=== PATIENT | female | born 1970 | race Hispanic/Latino ===

== ENCOUNTER 2016-10-19 00:42 | Emergency (ER) | payer SELFPAY ==
[~2016-10-19] VITALS: Ht 152.4 cm; Wt 58.1 kg
[~2016-10-19 00:42] MED LIST: ACHD5005 PO; AMIT10TA6 PO; NAPR1TAB21 PO
--- OUTSIDE RECORDS SUMMARY | 2016-10-19 00:49 | XMS REPORT ---
Author Author FRANCINE ALBERTS Organization [employer] Address Unknown Phone Unavailable Care Team Providers Care Fly Worker Name Role Phone FRANCINE ALBERTS CP Unavailable Allergies, Adverse Reactions, Alerts Substance Reaction Event Type Ultram 50 Mg Tablet nervousness Non Drug Allergy Problems Problem Type Condition Code Onset Dates Condition Status Assessment Acute pain of left knee M25.562 Active Assessment Gastroesophageal reflux disease without esophagitis K21.9 Active Problem Dysthymic disorder 300.4 Active Assessment Insomnia, unspecified type G47.00 Active Medications Medication Code System Code Instructions Start Date End Date Status Dosage Naproxen [facility] 70813041264 500 MG TAKE ONE TABLET BY MOUTH TWICE DAILY WITH FOOD Omeprazole [facility] [address]-59 20 mg TAKE ONE CAPSULE BY MOUTH TWICE DAILY BEFORE A MEAL PredniSONE [facility] [address]-56 20 mg Orally Once a day May 20, 2016May 1 tablet Amitriptyline HCl [facility] [address]-10 25 MG Orally Once a day Mar 28, 2015 1 tablet at bedtime Procedures Procedure Coding System Code Date Office Visit, Est Pt., Level 3 CPT-4 90643 May 20, 2016 Vital Signs Date/Time: May 20, 2016 Cardiac Monitoring Heart Rate 80 bpm Weight 134.6 lbs Height 60 in BMI 26.28 Index Blood Pressure Diastolic 72 mmHg Blood Pressure Systolic 104 mmHg Results No Known Results Summary Purpose [employer] Submission
--- NOTE | 2016-10-19 00:52 | ED GU-Female ---
General Stated Complaint: UTI Source: patient, RN notes reviewed Exam Limitations: no limitations History of Present Illness Time seen by provider: 00:52 Initial Comments Burning c/ urination since Thursday, worse today. OTC meds not helping. Timing/Duration: constant, getting worse Severity/Quality: moderate Location: urethral Radiation: none Activities at Onset: none Prior Genitourinary Problems: none Modifying Factors: Worsens With Urinating Associated Symptoms: dysuria urinary frequency Allergies and Home Medications Allergies Coded Allergies: No Known Allergies (Verified Allergy, Unknown, 12/21/05) Home Medications Amitriptyline Hcl 10 Mg Tablet 1-2 EACH PO DAILY (Reported) Cefdinir 300 Mg Capsule #20 300 MG PO BID Prescribed by: JORGE BOSE on 10/19/16121 Hydrocodone Bit/Acetaminophen 1 Each Tablet 1 EACH PO Q3H PRN PRN PAIN (Reported ) Naproxen/Esomeprazole Mag 1 Each Tbmp.12hr 1 EACH PO BID (Reported) Phenazopyridine HCl 200 Mg Tablet 2Days 1 TAB PO TID Prescribed by: JORGE BOSE on 10/19/16121 Constitutional: see HPI Genitourinary: see HPI burning dysuria frequency pain urgency : No All Other Systemes Reviewed Negative Unless Noted: Yes (Negative excepted noted.) Past Fxmheyt-Uuckba-Tcttso Hx Patient Social History Recent Foreign Travel: No Contact w/Someone Who Travel: No Respiratory Hx Respiratory Disorders: No Cardiovascular Hx Cardiac Disorders: No Neurological Hx Neurological Disorders: No Genitourinary Hx Genitourinary Disorders: No Gastrointestinal Hx Gastrointestinal Disorders: No Musculoskeletal Hx Musculoskeletal Disorders: No Endocrine Hx Endocrine Disorders: No HEENT HX ENT Disorders: No Blood Transfusions Hx Blood Disorders: No Physical Exam Vital Signs Capillary Refill : General Appearance: WD/WN mild distress Cardiovascular: regular rate, rhythm Respiratory: no respiratory distress Gastrointestinal: softNo guarding, No rebound, tenderness (suprapubic) Rectal: deferred Back: no CVA tenderness Neurologic/Psychiatric: no motor/sensory deficits alert oriented x 3 Skin: warm/dry Progress/Results/Core Measures Results/Orders Lab Results My Orders Vital Signs/I&O Departure Impression Impression: Primary Impression: Urinary tract infection Disposition: HOME, SELF-CARE Condition: Stable Departure-Patient Inst. Decision time for Depature: 01:20 Referrals: GILMAR MELENDREZ DO (PCP/Family) Primary Care Physician Patient Instructions: Urinary Tract Infection, Adult (DC) Scripts Phenazopyridine HCl (Pyridium)200 Mg Tablet1 Tab PO TID UTI 2 Days Ref 0 Prov:JORGE BOSE DO 10/19/16 Cefdinir 300 Mg [id number] Mg PO BID UTI #20 CAP Ref 0 Prov:JORGE BOSE DO 10/19/16 JORGE BOSE DO Oct 19, 2016 00:52 Urine Protein 2+ H NEGATIVE Urine RBC 25-50 H /HPF Urine RBC (Auto) 5+ H NEGATIVE Urine Specific [place] 1.015 L 1.016-1.022 Urine Squamous Epithelial Cells 5-10 /HPF Urine Urobilinogen 8 H NORMAL MG/DL Urine WBC 10-25 H /HPF Urine pH 5 5-9 My Orders Orders-JORGE BOSE DO Ua Culture If Indicated (10/19/16 00:50) Urine Culture (10/19/16 00:46) Phenazopyridine Tablet (Pyridium Tablet) (10/19/16 01:30) Cefdinir Capsule (Omnicef Capsule) (10/19/16 01:30) Vital Signs/I&O Vital Sign - Last 12Hours 10/19/16 00:45 Temp 96.7 Pulse 79 Resp 20 B/P 142/93 Pulse Ox 99 O2 Delivery Room Air Departure Impression Impression: Primary Impression: Urinary tract infection Disposition: HOME, SELF-CARE Condition: Stable Departure-Patient Inst. Decision time for Depature: 01:20 Referrals: GILMAR MELENDREZ DO (PCP/Family) Primary Care Physician Patient Instructions: Urinary Tract Infection, Adult (DC) Scripts Phenazopyridine HCl (Pyridium)200 Mg Tablet1 Tab PO TID UTI 2 Days Ref 0 Prov:JORGE BOSE DO 10/19/16 Cefdinir 300 Mg [id number] Mg PO BID UTI #20 CAP Ref 0 Prov:JORGE BOSE DO 10/19/16 JORGE BOSE DO Oct 19, 2016 00:52
[2016-10-19 01:05] LABS: KETONES,URINE NEGATIVE (NEGATIVE); LEUKOCYTE ESTERASE ,URINE 2+ (NEGATIVE); NITRITE,URINE POSITIVE (NEGATIVE); PH,URINE 5 (5-9); PROTEIN,URINE 2+ (NEGATIVE); UROBILINOGEN,URINE 8 MG/DL (NORMAL)
[2016-10-19 01:06] LABS: BILIRUBIN,URINE 3+ (NEGATIVE)
[2016-10-19] MEDS ORDERED: PHEN-640 PO (01:22)
[2016-10-19] MEDS ORDERED: CEFD300C3 PO (01:22)
[2016-10-19 01:30] VITALS: BP 0/0
[2016-10-19] MEDS ORDERED: CEFDINIR 300 MG (OMNICEF) CAP PO ONE (01:30)
[2016-10-19] MEDS ORDERED: PHENAZOPYRIDINE 100 MG (PYRIDIUM) TABLET PO ONE (01:30)
== END 2016-10-19 01:30 | disposition home or self-care (01) ==
LOC: EDUNIT# 00:42 → ER 00:45
DX: N39.0 Urinary tract infection, site not specified (principal)
CPT/HCPCS: 81000; 87088; 87186; 99282

== ENCOUNTER 2017-02-15 14:47 | Emergency (ER) | payer SELFPAY ==
[~2017-02-15] VITALS: Ht 152.4 cm; Wt 58.1 kg
[~2017-02-15 14:47] MED LIST changes: +CEFD300C3 PO; +PHEN-640 PO
[2017-02-15 15:23] LABS: BILIRUBIN,URINE NEGATIVE (NEGATIVE); KETONES,URINE NEGATIVE (NEGATIVE); LEUKOCYTE ESTERASE ,URINE 3+ (NEGATIVE); NITRITE,URINE POSITIVE (NEGATIVE); PH,URINE 7 (5-9); PROTEIN,URINE 1+ (NEGATIVE); UROBILINOGEN,URINE NORMAL (NORMAL)
[2017-02-15 15:29] LABS: BASOPHILS % (AUTO) 0 % (0-10); EOSINOPHILS # (AUTO) 0.2 10^3/uL (0.0-0.3); EOSINOPHILS % (AUTO) 3 % (0-10); LYMPHOCYTES # (AUTO) 1.1 X 10^3 (1.0-4.0); LYMPHOCYTES % (AUTO) 20 % (12-44); MEAN CORPUSCULAR HEMOGLOBIN 27 PG (25-34); MEAN CORPUSCULAR HGB CONC 32 G/DL (32-36); MEAN CORPUSCULAR VOLUME 85 FL (80-99); MEAN PLATELET VOLUME 9.7 FL (7.4-10.4); MONOCYTES # (AUTO) 0.3 X 10^3 (0.0-1.0); MONOCYTES % (AUTO) 6 % (0-12); NEUTROPHILS % (AUTO) 71 % (42-75); PLATELET COUNT 278 10^3/uL (130-400); RED BLOOD COUNT 4.32 10^6/uL (4.35-5.85); RED CELL DISTRIBUTION WIDTH 15.4 % (10.0-14.5); WHITE BLOOD COUNT 5.6 10^3/uL (4.3-11.0)
--- NOTE | 2017-02-15 15:30 | ED Abdominal Pain ---
General Stated Complaint: ABD PAIN Source of Information: Patient Exam Limitations: No Limitations History of Present Illness Time Seen By Provider: 15:28 Initial Comments To ER with suprapubic abdominal pain, mild bilateral flank pain, nausea without vomiting, urinary frequency with only dribbling. Symptoms began 2 days ago. Chills but no fever. Timing/Duration: 1-2 Days Severity/Quality: Moderate Location: Suprapubic Radiation: No Radiation Activities at Onset: None Associated Symptoms: Nausea/Vomiting Allergies and Home Medications Allergies Coded Allergies: No Known Allergies (Verified Allergy, Unknown, 12/21/05) Home Medications Amitriptyline Hcl 10 Mg Tablet, 1-2 EACH PO DAILY, (Reported) Cefdinir 300 Mg Capsule, 300 MG PO BID, #20 Ref 0 Prescribed by: JORGE BOSE on 10/19/16121 Hydrocodone Bit/Acetaminophen 1 Each Tablet, 1 EACH PO Q3H PRN for PAIN, ( Reported) Naproxen/Esomeprazole Mag 1 Each Tbmp.12hr, 1 EACH PO BID, (Reported) Phenazopyridine HCl 200 Mg Tablet, 1 TAB PO TID for 2 Days, Ref 0 Prescribed by: JORGE BOSE on 10/19/16121 Review of Systems Constitutional: see HPI, chills EENTM: No Symptoms Reported Respiratory: No Symptoms Reported Cardiovascular: No Symptoms Reported Gastrointestinal: See HPI, Abdominal Pain, Nausea Genitourinary: No Symptoms Reported Musculoskeletal: no symptoms reported Skin: no symptoms reported Psychiatric/Neurological: No Symptoms Reported Endocrine: No Symptoms Reported Past Ixamtav-Amcywl-Capfou Hx Patient Social History Recent Foreign Travel: No Contact w/Someone Who Travel: No Recent Hopitalizations: No Surgeries HX Surgeries: No Respiratory Hx Respiratory Disorders: No Cardiovascular Hx Cardiac Disorders: No Neurological Hx Neurological Disorders: No Genitourinary Hx Genitourinary Disorders: No Gastrointestinal Hx Gastrointestinal Disorders: No Musculoskeletal Hx Musculoskeletal Disorders: No Endocrine Hx Endocrine Disorders: Yes Endocrine Disorders: Lupus HEENT HX ENT Disorders: No Blood Transfusions Hx Blood Disorders: No Physical Exam Vital Signs VS - Last 72 Hours, by Label 02/15/17 15:34 Temp 98.3 Pulse 88 Resp 16 B/P (MAP) 119/84 Pulse Ox 99 O2 Delivery Room Air Capillary Refill : General Appearance: WD/WN, no apparent distress HEENT: PERRL/EOMI, normal ENT inspection Neck: non-tender, full range of motion Respiratory: no respiratory distress, no accessory muscle use Cardiovascular: regular rate, rhythm, no murmur Gastrointestinal: normal bowel sounds, non tender, soft Extremities: normal range of motion, non-tender Neurologic/Psychiatric: alert, normal mood/affect, oriented x 3 Skin: normal color, warm/dry Progress/Results/Core Measures Results/Orders Lab Results Laboratory Tests Test 02/15/17 15:16 02/15/17 15:22 Range/Units Urine Color YELLOW Urine Clarity SLIGHTLY CLOUDY Urine pH 7 5-9 Urine Specific [employer] 1.005 L 1.016-1.022 Urine Protein 1+ H NEGATIVE Urine Glucose (UA) NEGATIVE NEGATIVE Urine Ketones NEGATIVE NEGATIVE Urine Nitrite POSITIVE H NEGATIVE Urine Bilirubin NEGATIVE NEGATIVE Urine Urobilinogen NORMAL NORMAL MG/DL Urine Leukocyte Esterase 3+ H NEGATIVE Urine RBC (Auto) 5+ H NEGATIVE Urine RBC 5-10 H /HPF Urine WBC 50-100 H /HPF Urine Squamous Epithelial Cells NONE /HPF Urine Crystals NONE /LPF Urine Bacteria NEGATIVE /HPF Urine Casts NONE /LPF Urine Mucus NEGATIVE /LPF Urine Culture Indicated YES White Blood Count 5.6 4.3-11.0 10^3/uL Red Blood Count 4.32 L 4.35-5.85 10^6/uL Hemoglobin 11.5 11.5-16.0 G/DL Hematocrit 37 35-52 % Mean Corpuscular Volume 85 80-99 FL Mean Corpuscular Hemoglobin 27 25-34 PG Mean Corpuscular Hemoglobin Concent 32 32-36 G/DL Red Cell Distribution Width 15.4 H 10.0-14.5 % Platelet Count 278 130-400 10^3/uL Mean Platelet Volume 9.7 7.4-10.4 FL Neutrophils (%) (Auto) 71 42-75 % Lymphocytes (%) (Auto) 20 12-44 % Monocytes (%) (Auto) 6 0-12 % Eosinophils (%) (Auto) 3 0-10 % Basophils (%) (Auto) 0 0-10 % Neutrophils # (Auto) 4.0 1.8-7.8 X 10^3 Lymphocytes # (Auto) 1.1 1.0-4.0 X 10^3 Monocytes # (Auto) 0.3 0.0-1.0 X 10^3 Eosinophils # (Auto) 0.2 0.0-0.3 10^3/uL Basophils # (Auto) 0.0 0.0-0.1 10^3/uL My Orders Orders - KAMILLA LUNSFORD APRN Saline Lock/Iv-Start (02/15/17 15:24) Cbc With Automated Diff (02/15/17 15:24) Basic Metabolic Panel (02/15/17 15:24) Rocephin 1 Gm Iv (1 X Dose) (02/15/17 15:45) Vital Signs/I&O Vital Sign - Last 12Hours 02/15/17 15:34 Temp 98.3 Pulse 88 Resp 16 B/P (MAP) 119/84 Pulse Ox 99 O2 Delivery Room Air Departure Impression Impression: Primary Impression: Urinary tract infection Disposition: HOME, SELF-CARE Condition: Stable Departure-Patient Inst. Decision time for Depature: 15:39 Referrals: GILMAR MELENDREZ DO (PCP/Family) Primary Care Physician Patient Instructions: Urinary Tract Infection, Adult (DC) Add. Discharge Instructions: 1. Drink plenty of fluids 2. Return to ER for any concerns 3. See your doctor next week 4. Do not be alarmed medication as your urine a Very dark orangecolor. Scripts Phenazopyridine HCl (Pyridium) 200 Mg Tablet 1 TAB PO TID, #6 TAB Prov: KAMILLA LUNSFORD APRN 02/15/17 Sulfamethoxazole/Trimethoprim (Bactrim Ds Tablet) 1 Each Tablet 1 EACH PO BID, #10 TAB Prov: KAMILLA LUNSFORD APRN 02/15/17 KAMILLA LUNSFORD APRN Feb 15, 2017 15:29
[2017-02-15 15:36] LABS: WBC,URINE 50-100 /HPF
[2017-02-15] MEDS ORDERED: PHEN-640 PO (15:41)
[2017-02-15] MEDS ORDERED: SULF1TAB35 PO (15:41)
[2017-02-15] MEDS ORDERED: cefTRIAXone INJECTION 1,000 MG in NS (IVPB) 50 ML IV ONE (15:45)
[2017-02-15 15:48] LABS: ANION GAP 9 MMOL/L (5-14); BLOOD UREA NITROGEN 11 MG/DL (7-18); BUN/CREATININE RATIO 15 (0-20); CARBON DIOXIDE 24 MMOL/L (21-32); CHLORIDE 106 MMOL/L (98-107); CREATININE SERUM 0.73 MG/DL (0.60-1.30); GFR ESTIMATED > 60; GLUCOSE 85 MG/DL (70-105); HEMOLYSIS 5 (-100-29); ICTERUS 0.6 (-100-1.9); LIPEMIA 4 (-100-49); POTASSIUM 3.5 MMOL/L (3.6-5.0); SODIUM 139 MMOL/L (135-145)
[2017-02-15 16:12] VITALS: BP 128/87
--- OUTSIDE RECORDS SUMMARY | 2017-02-16 18:35 | XMS REPORT ---
Author Author FRANCINE ALBERTS Organization [employer] Address Unknown Phone Unavailable Care Team Providers Care Metallurgist Helper Name Role Phone FRANCINE ALBERTS CP Unavailable [...] Start Date End Date Status Dosage Naproxen [facility] [id number] 500 MG TAKE ONE TABLET BY MOUTH TWICE DAILY WITH FOOD Omeprazole [facility] [address]-66 20 mg TAKE ONE CAPSULE BY MOUTH TWICE DAILY BEFORE A MEAL PredniSONE [facility] [address]-43 20 mg Orally Once a day May 20, 2016May 1 tablet Amitriptyline HCl [facility] [address]-52 25 MG Orally Once a day Mar 28, 2015 1 tablet at bedtime Procedures Procedure Coding System Code Date Office Visit, Est Pt., Level 3 CPT-4 09222 May 20, 2016 Vital Signs Date/Time: May 20, 2016 Cardiac Monitoring Heart Rate 80 bpm Weight 134.6 lbs Height 60 in BMI 26.28 Index Blood Pressure Diastolic 72 mmHg Blood Pressure Systolic 104 mmHg Results No Known Results Summary Purpose [employer] Submission
--- OUTSIDE RECORDS SUMMARY | 2017-02-16 18:36 | XMS REPORT ---
Author Author FRANCINE ALBERTS Organization [employer] Address Unknown Phone Unavailable Care Team Providers Care Corporate Human Resources Manager Name Role Phone FRANCINE ALBERTS CP Unavailable Allergies, Adverse Reactions, Alerts Substance Reaction Event Type Ultram 50 Mg Tablet nervousness Non Drug Allergy Problems Problem Type Condition ICD-9 Code Onset Dates Condition Status Assessment Depression 311 Active Problem Dysthymic disorder 300.4 Active Medications Medication Code System Code Instructions Start Date End Date Status Dosage Amitriptyline HCl [facility] [address]-65 25 MG Orally Once a day Mar 28, 2015 1 tablet at bedtime Elavil NDC 0 25 mg Sep 28, 2014 1 tablet by Oral route 1 time per day at Procedures Procedure Coding System Code Date Office Visit, Est Pt., Level 3 CPT-4 08491 Apr 26, 2015 Vital Signs Date/Time: Apr 26, 2015 Temperature 97.8 F Weight 129.7 lbs Height 60 in BMI 25.33 Index Blood Pressure Diastolic 72 mmHg Blood Pressure Systolic 102 mmHg Cardiac Monitoring Heart Rate 80 bpm Results No Known Results Summary Purpose [employer] Submission
--- OUTSIDE RECORDS SUMMARY | 2017-02-16 18:36 | XMS REPORT | Continuity of Care Document ---
Author Author [facility] of [place] campus Address Unknown Phone Unavailable Allergies Active Description Code Type Severity Reaction Onset Reported/Identified Relationship to Patient Clinical Status Yes NKANo Known Allergies NKA Miscellaneous Allergy Unknown N/ A 12/21/2005 Yes Ultram 50 mg tablet Drug Allergy 05/06/2012 Yes Ultram 50 mg tablet Drug Allergy N/A N/A 05/06/2012 Medications Problems Date Dx Coded Attending Type Code Diagnosis Diagnosed By 09/21/2008 V72.31 Pelvic Exam (internal) 09/21/2008 GILMAR MELENDREZ DO V72.31 Pelvic Exam (internal) 09/21/2008 V72.31 Pelvic Exam (internal) 09/21/2008 GILMAR MELENDREZ DO V72.31 Pelvic Exam (internal) 09/21/2008 V72.31 Pelvic Exam (internal) 09/21/2008 V72.31 Pelvic Exam (internal) 09/21/2008 V72.31 Pelvic Exam (internal) 09/21/2008 V72.31 Pelvic Exam (internal) 09/21/2008 V72.31 Pelvic Exam (internal) 09/21/2008 QIAN CARVER DDS V72.31 Pelvic Exam (internal) 09/21/2008 FRANCINE ALBERTS APRN V72.31 Pelvic Exam (internal) 01/22/2009 616.10 Vaginitis And Vulvovaginitis Unspecified 01/22/2009 GILMAR MELENDREZ DO 616.10 Vaginitis And Vulvovaginitis Unspecified 01/22/2009 616.10 Vaginitis And Vulvovaginitis Unspecified 01/22/2009 GILMAR MELENDREZ DO 616.10 Vaginitis And Vulvovaginitis Unspecified 01/22/2009 616.10 Vaginitis And Vulvovaginitis Unspecified 01/22/2009 616.10 Vaginitis And Vulvovaginitis Unspecified 01/22/2009 616.10 Vaginitis And Vulvovaginitis Unspecified 01/22/2009 616.10 Vaginitis And Vulvovaginitis Unspecified 01/22/2009 616.10 Vaginitis And Vulvovaginitis Unspecified 01/22/2009 QIAN CARVER DDS 616.10 Vaginitis And Vulvovaginitis Unspecified 01/22/2009 FRANCINE ALBERTS APRN 616.10 Vaginitis And Vulvovaginitis Unspecified 09/19/2009 599.0 Urinary Tract Infection, Site Not Specified 09/19/2009 788.1 Dysuria 09/19/2009 GILMAR MELENDREZ DO 599.0 Urinary Tract Infection, Site Not Specified 09/19/2009 GILMAR MELENDREZ DO 788.1 Dysuria 09/19/2009 599.0 Urinary Tract Infection, Site Not Specified 09/19/2009 788.1 Dysuria 09/19/2009 GILMAR MELENDREZ DO 599.0 Urinary Tract Infection, Site Not Specified 09/19/2009 GILMAR MELENDREZ DO 788.1 Dysuria 09/19/2009 599.0 Urinary Tract Infection, Site Not Specified 09/19/2009 788.1 Dysuria 09/19/2009 599.0 Urinary Tract Infection, Site Not Specified 09/19/2009 788.1 Dysuria 09/19/2009 599.0 Urinary Tract Infection, Site Not Specified 09/19/2009 788.1 Dysuria 09/19/2009 599.0 Urinary Tract Infection, Site Not Specified 09/19/2009 788.1 Dysuria 09/19/2009 599.0 Urinary Tract Infection, Site Not Specified 09/19/2009 788.1 Dysuria 09/19/2009 QIAN CARVER DDS 599.0 Urinary Tract Infection, Site Not Specified 09/19/2009 QIAN CARVER DDS 788.1 Dysuria 09/19/2009 FRANCINE ALBERTS APRN 599.0 Urinary Tract Infection, Site Not Specified 09/19/2009 FRANCINE ALBERTS APRN 788.1 Dysuria 09/21/2009 112.1 Candidiasis Vaginal 09/21/2009 V74.5 Visit For: Screening Exam Bact/spirochetal Venereal Disease 09/21/2009 GILMAR MELENDREZ DO 112.1 Candidiasis Vaginal 09/21/2009 GILMAR MELENDREZ DO V74.5 Visit For: Screening Exam Bact/spirochetal Venereal Disease 09/21/2009 112.1 Candidiasis Vaginal 09/21/2009 V74.5 Visit For: Screening Exam Bact/spirochetal Venereal Disease 09/21/2009 GILMAR MELENDREZ DO 112.1 Candidiasis Vaginal 09/21/2009 GILMAR MELENDREZ DO V74.5 Visit For: Screening Exam Bact/spirochetal Venereal Disease 09/21/2009 112.1 Candidiasis Vaginal 09/21/2009 V74.5 Visit For: Screening Exam Bact/spirochetal Venereal Disease 09/21/2009 112.1 Candidiasis Vaginal 09/21/2009 V74.5 Visit For: Screening Exam Bact/spirochetal Venereal Disease 09/21/2009 112.1 Candidiasis Vaginal 09/21/2009 V74.5 Visit For: Screening Exam Bact/spirochetal Venereal Disease 09/21/2009 112.1 Candidiasis Vaginal 09/21/2009 V74.5 Visit For: Screening Exam Bact/spirochetal Venereal Disease 09/21/2009 112.1 Candidiasis Vaginal 09/21/2009 V74.5 Visit For: Screening Exam Bact/spirochetal Venereal Disease 09/21/2009 QIAN CARVER DDS 112.1 Candidiasis Vaginal 09/21/2009 QIAN CARVER DDS V74.5 Visit For: Screening Exam Bact/ spirochetal Venereal Disease 09/21/2009 FRANCINE ALBERTS APRN 112.1 Candidiasis Vaginal 09/21/2009 FRANCINE ALBERTS APRN S V74.5 Visit For: Screening Exam Bact/ spirochetal Venereal Disease 12/14/2009 719.40 ARTHRAIGIA UNSPEC 12/14/2009 783.0 Anorexia 12/14/2009 GILMAR MELENDREZ DO 719.40 ARTHRAIGIA UNSPEC 12/14/2009 GILMAR MELENDREZ DO 783.0 Anorexia 12/14/2009 719.40 ARTHRAIGIA UNSPEC 12/14/2009 783.0 Anorexia 12/14/2009 GILMAR MELENDREZ DO 719.40 ARTHRAIGIA UNSPEC 12/14/2009 GILMAR MELENDREZ DO 783.0 Anorexia 12/14/2009 719.40 ARTHRAIGIA UNSPEC 12/14/2009 783.0 Anorexia 12/14/2009 719.40 ARTHRAIGIA UNSPEC 12/14/2009 783.0 Anorexia 12/14/2009 719.40 ARTHRAIGIA UNSPEC 12/14/2009 783.0 Anorexia 12/14/2009 719.40 ARTHRAIGIA UNSPEC 12/14/2009 783.0 Anorexia 12/14/2009 719.40 ARTHRAIGIA UNSPEC 12/14/2009 783.0 Anorexia 12/14/2009 MEHUL GOMEZSQIAN 719.40 ARTHRAIGIA UNSPEC 12/14/2009 WHITE DDS, QIAN J 783.0 Anorexia 12/14/2009 FRANCINE ALBERTS APRN 719.40 ARTHRAIGIA UNSPEC 12/14/2009 FRANCINE ALBERTS APRN 783.0 Anorexia 12/28/2009 710.0 SYSTEMIC LUPUS ERYTHEMATOSUS 12/28/2009 GILMAR MELENDREZ DO 710.0 SYSTEMIC LUPUS ERYTHEMATOSUS 12/28/2009 710.0 SYSTEMIC LUPUS ERYTHEMATOSUS 12/28/2009 GILMAR MELENDREZ DO 710.0 SYSTEMIC LUPUS ERYTHEMATOSUS 12/28/2009 710.0 SYSTEMIC LUPUS ERYTHEMATOSUS 12/28/2009 710.0 SYSTEMIC LUPUS ERYTHEMATOSUS 12/28/2009 710.0 SYSTEMIC LUPUS ERYTHEMATOSUS 12/28/2009 710.0 SYSTEMIC LUPUS ERYTHEMATOSUS 12/28/2009 710.0 SYSTEMIC LUPUS ERYTHEMATOSUS 12/28/2009 QIAN CARVER DDS 710.0 SYSTEMIC LUPUS ERYTHEMATOSUS 12/28/2009 FRANCINE ALBERTS APRN 710.0 SYSTEMIC LUPUS ERYTHEMATOSUS 04/24/2010 787.02 Nausea Alone 04/24/2010 GILMAR MELENDREZ DO 787.02 Nausea Alone 04/24/2010 787.02 Nausea Alone 04/24/2010 GILMAR MELENDREZ DO 787.02 Nausea Alone 04/24/2010 787.02 Nausea Alone 04/24/2010 787.02 Nausea Alone 04/24/2010 787.02 Nausea Alone 04/24/2010 787.02 Nausea Alone 04/24/2010 787.02 Nausea Alone 04/24/2010 QIAN CARVER DDS 787.02 Nausea Alone 04/24/2010 FRANCINE ALBERTS APRN 787.02 Nausea Alone 08/07/2010 041.86 Helicobacter Pylori [h. Pylori] Infection 08/07/2010 GILMAR MELENDREZ DO 041.86 Helicobacter Pylori [h. Pylori] Infection 08/07/2010 041.86 Helicobacter Pylori [h. Pylori] Infection 08/07/2010 GILMAR MELENDREZ DO 041.86 Helicobacter Pylori [h. Pylori] Infection 08/07/2010 041.86 Helicobacter Pylori [h. Pylori] Infection 08/07/2010 041.86 Helicobacter Pylori [h. Pylori] Infection 08/07/2010 041.86 Helicobacter Pylori [h. Pylori] Infection 08/07/2010 041.86 Helicobacter Pylori [h. Pylori] Infection 08/07/2010 041.86 Helicobacter Pylori [h. Pylori] Infection 08/07/2010 QIAN CARVER DDS 041.86 Helicobacter Pylori [h. Pylori] Infection 08/07/2010 FRANCINE ALBERTS APRN 041.86 Helicobacter Pylori [h. Pylori] Infection 11/26/2010 611.71 Breast Pain 11/26/2010 623.5 Leukorrhea Not Specified As Infective 11/26/2010 GILMAR MELENDREZ DO 611.71 Breast Pain 11/26/2010 GILMAR MELENDREZ DO 623.5 Leukorrhea Not Specified As Infective 11/26/2010 611.71 Breast Pain 11/26/2010 623.5 Leukorrhea Not Specified As Infective 11/26/2010 GILMAR MELENDREZ DO 611.71 Breast Pain 11/26/2010 GILMAR MELENDREZ DO 623.5 Leukorrhea Not Specified As Infective 11/26/2010 611.71 Breast Pain 11/26/2010 623.5 Leukorrhea Not Specified As Infective 11/26/2010 611.71 Breast Pain 11/26/2010 623.5 Leukorrhea Not Specified As Infective 11/26/2010 611.71 Breast Pain 11/26/2010 623.5 Leukorrhea Not Specified As Infective 11/26/2010 611.71 Breast Pain 11/26/2010 623.5 Leukorrhea Not Specified As Infective 11/26/2010 611.71 Breast Pain 11/26/2010 623.5 Leukorrhea Not Specified As Infective 11/26/2010 QIAN CARVER DDS 611.71 Breast Pain 11/26/2010 QIAN CARVER DDS 623.5 Leukorrhea Not Specified As Infective 11/26/2010 FRANCINE ALBERTS APRN S 611.71 Breast Pain 11/26/2010 FRANCINE ALBERTS APRN S 623.5 Leukorrhea Not Specified As Infective 12/24/2011 296.90 MOOD DISORDER 12/24/2011 780.79 Malaise And Fatigue 12/24/2011 V76.2 Cervical Cancer Screening (pap Smear) 12/24/2011 GILMAR MELENDREZ DO 296.90 MOOD DISORDER 12/24/2011 GILMAR MELENDREZ DO 780.79 Malaise And Fatigue 12/24/2011 GILMAR MELENDREZ DO V76.2 Cervical Cancer Screening (pap Smear) 12/24/2011 296.90 MOOD DISORDER 12/24/2011 780.79 Malaise And Fatigue 12/24/2011 V76.2 Cervical Cancer Screening (pap Smear) 12/24/2011 GILMAR MELENDREZ DO 296.90 MOOD DISORDER 12/24/2011 GILMAR MELENDREZ DO 780.79 Malaise And Fatigue 12/24/2011 GILMAR MELENDREZ DO V76.2 Cervical Cancer Screening (pap Smear) 12/24/2011 296.90 MOOD DISORDER 12/24/2011 780.79 Malaise And Fatigue 12/24/2011 V76.2 Cervical Cancer Screening (pap Smear) 12/24/2011 296.90 MOOD DISORDER 12/24/2011 780.79 Malaise And Fatigue 12/24/2011 V76.2 Cervical Cancer Screening (pap Smear) 12/24/2011 296.90 MOOD DISORDER 12/24/2011 780.79 Malaise And Fatigue 12/24/2011 V76.2 Cervical Cancer Screening (pap Smear) 12/24/2011 296.90 MOOD DISORDER 12/24/2011 780.79 Malaise And Fatigue 12/24/2011 V76.2 Cervical Cancer Screening (pap Smear) 12/24/2011 296.90 MOOD DISORDER 12/24/2011 780.79 Malaise And Fatigue 12/24/2011 V76.2 Cervical Cancer Screening (pap Smear) 12/24/2011 WHITE PATRICIAS, QIAN J 296.90 MOOD DISORDER 12/24/2011 WHITE PATRICIAS, QIAN J 780.79 Malaise And Fatigue 12/24/2011 WHITE PATRICIAS, QIAN J V76.2 Cervical Cancer Screening (pap Smear) 12/24/2011 FRANCINE ALBERTS APRN 296.90 MOOD DISORDER 12/24/2011 FRANCINE ALBERTS APRN 780.79 Malaise And Fatigue 12/24/2011 FRANCINE ALBERTS APRN V76.2 Cervical Cancer Screening (pap Smear) 06/22/2012 599.70 HEMATURIA 06/22/2012 719.41 PAIN IN JOINT INVOLVING SHOULDER REGION 06/22/2012 788.1 DYSURIA 06/22/2012 788.41 URINARY FREQUENCY 06/22/2012 GILMAR MELENDREZ DO K 599.70 HEMATURIA 06/22/2012 GILMAR MELENDRZE DO K 719.41 PAIN IN JOINT INVOLVING SHOULDER REGION 06/22/2012 GILMAR MELENDREZ DO K 788.1 DYSURIA 06/22/2012 GILMAR MELENDREZ DO K 788.41 URINARY FREQUENCY 06/22/2012 599.70 HEMATURIA 06/22/2012 719.41 PAIN IN JOINT INVOLVING SHOULDER REGION 06/22/2012 788.1 DYSURIA 06/22/2012 788.41 URINARY FREQUENCY 06/22/2012 GILMAR MELENDREZ DO K 599.70 HEMATURIA 06/22/2012 GILMAR MELENDREZ DO K 719.41 PAIN IN JOINT INVOLVING SHOULDER REGION 06/22/2012 GILMAR MELENDREZ DO K 788.1 DYSURIA 06/22/2012 MICHA MELENDREZ DOA K 788.41 URINARY FREQUENCY 06/22/2012 599.70 HEMATURIA 06/22/2012 719.41 PAIN IN JOINT INVOLVING SHOULDER REGION 06/22/2012 788.1 DYSURIA 06/22/2012 788.41 URINARY FREQUENCY 06/22/2012 599.70 HEMATURIA 06/22/2012 719.41 PAIN IN JOINT INVOLVING SHOULDER REGION 06/22/2012 788.1 DYSURIA 06/22/2012 788.41 URINARY FREQUENCY 06/22/2012 599.70 HEMATURIA 06/22/2012 719.41 PAIN IN JOINT INVOLVING SHOULDER REGION 06/22/2012 788.1 DYSURIA 06/22/2012 788.41 URINARY FREQUENCY 06/22/2012 599.70 HEMATURIA 06/22/2012 719.41 PAIN IN JOINT INVOLVING SHOULDER REGION 06/22/2012 788.1 DYSURIA 06/22/2012 788.41 URINARY FREQUENCY 06/22/2012 599.70 HEMATURIA 06/22/2012 719.41 PAIN IN JOINT INVOLVING SHOULDER REGION 06/22/2012 788.1 DYSURIA 06/22/2012 788.41 URINARY FREQUENCY 06/22/2012 WHITE PATRICIASQIAN 599.70 HEMATURIA 06/22/2012 WHITE PATRICIASQIAN J 719.41 PAIN IN JOINT INVOLVING SHOULDER REGION 06/22/2012 WHITE QIAN BALLESTEROS 788.1 DYSURIA 06/22/2012 WHITE PATRICIASQIAN 788.41 URINARY FREQUENCY 06/22/2012 DEE ALBERTS APRNA S 599.70 HEMATURIA 06/22/2012 DELONTE ALBERTS APRNNDA S 719.41 PAIN IN JOINT INVOLVING SHOULDER REGION 06/22/2012 DEE ALBERTS APRNA S 788.1 DYSURIA 06/22/2012 DELONTE ALBERTS APRNNDA S 788.41 URINARY FREQUENCY 09/14/2012 GILMAR MELENDREZ DO V72.31 FUR FEEDER EXAM, ROUTINE 09/14/2012 V72.31 FUR FEEDER EXAM, ROUTINE 09/14/2012 GILMAR MELENDREZ DO V72.31 FUR FEEDER EXAM, ROUTINE 09/14/2012 V72.31 FUR FEEDER EXAM, ROUTINE 09/14/2012 V72.31 FUR FEEDER EXAM, ROUTINE 09/14/2012 V72.31 FUR FEEDER EXAM, ROUTINE 09/14/2012 V72.31 FUR FEEDER EXAM, ROUTINE 09/14/2012 V72.31 FUR FEEDER EXAM, ROUTINE 09/14/2012 QIAN CARVER DDS V72.31 FUR FEEDER EXAM, ROUTINE 09/14/2012 FRANCINE ALBERTS APRN V72.31 FUR FEEDER EXAM, ROUTINE 01/05/2013 V76.10 BREAST CANCER SCREENING 01/05/2013 V76.10 BREAST CANCER SCREENING 01/05/2013 V76.10 BREAST CANCER SCREENING 01/05/2013 V76.10 BREAST CANCER SCREENING 01/05/2013 V76.10 BREAST CANCER SCREENING 01/05/2013 QIAN CARVER DDS V76.10 BREAST CANCER SCREENING 01/05/2013 FRANCINE ALBERTS APRN V76.10 BREAST CANCER SCREENING 04/04/2013 300.4 DYSTHYMIC DISORDER 04/04/2013 300.4 DYSTHYMIC DISORDER 04/04/2013 300.4 DYSTHYMIC DISORDER 04/04/2013 QIAN CARVER DDS 300.4 DYSTHYMIC DISORDER 04/04/2013 FRANCINE ALBERTS APRN 300.4 DYSTHYMIC DISORDER 07/18/2013 REVEAL TORRES BRUCE Ot 727.61 ROTATOR CUFF RUPTURE 04/17/2015 ANNAMARIA CARPIO RAMP BOSS Ot 793.82 04/17/2015 ANNAMARIA CARPIO RAMP BOSS Ot V76.12 04/17/2015 ANNAMARIA CARPIO RAMP BOSS Ot V76.12 04/17/2015 ANDRIY DURANT MULE RIDER Ot 727.61 04/17/2015 REVEAL TORRES BRUCE Ot 840.4 04/17/2015 REVEAL TORRES BRUCE Ot E000.8 04/17/2015 REVEAL TORRES BRUCE Ot E849.0 04/17/2015 REVEAL TORRES BRUCE Ot E888.9 04/17/2015 REVEAL TORRES BRUCE Ot V72.83 04/17/2015 REVEAL TORRES BRUCE Ot V74.8 04/17/2015 ANNAMARIA CARPIO RAMP BOSS Ot 610.1 10/19/2016 ANNAMARIA CARPIO RAMP BOSS Ot 793.82 INCONCLUSIVE MAMMOGRAM 10/19/2016 ANNAMARIA CARPIO APRN Ot V76.12 OTH SCREEN MAMMO-MALIGN NEOPLASM OF TASHA 10/19/2016 ANNAMARIA CARPIO RAMP BOSS Ot V76.12 OTH SCREEN MAMMO-MALIGN NEOPLASM OF TASHA 10/19/2016 ANDRIY DURANT MULE RIDER Ot 727.61 ROTATOR CUFF RUPTURE 10/19/2016 REVEAL TORRES BRUCE Ot 840.4 SPRAIN ROTATOR CUFF 10/19/2016 REVEAL TORRES BRUCE Ot E000.8 OTHER EXTERNAL CAUSE STATUS 10/19/2016 REVEAL TORRES BRUCE Ot E849.0 ACCIDENT IN HOME 10/19/2016 REVEAL TORRES BRUCE Ot E888.9 FALL NOS 10/19/2016 REVEAL TORRES BRUCE Ot V72.83 EXAM PRE-OPERATIVE NEC 10/19/2016 REVEAL TORRES BRUCE Ot V74.8 SCREEN-BACTERIAL DIS NEC 10/19/2016 ANNAMARIA CARPIO APRN Ot 610.1 DIFFUS CYSTIC MASTOPATHY 10/19/2016 ANNAMARIA CARPIO APRN Ot V76.12 OTH SCREEN MAMMO-MALIGN NEOPLASM OF TASHA 10/19/2016 JORGE BOSE DO Ot N39.0 URINARY TRACT INFECTION, SITE NOT SPECIF 10/21/2016 JORGE BOSE DO Ot N39.0 URINARY TRACT INFECTION, SITE NOT SPECIF 10/21/2016 JORGE BOSE DO Ot N39.0 URINARY TRACT INFECTION, SITE NOT SPECIF 10/22/2016 JORGE BOSE DO Ot N39.0 URINARY TRACT INFECTION, SITE NOT SPECIF 10/23/2016 ANNAMARIA CARPIO APRN Ot 793.82 INCONCLUSIVE MAMMOGRAM 10/23/2016 ANNAMARIA CARPIO APRN Ot V76.12 OTH SCREEN MAMMO-MALIGN NEOPLASM OF TASHA 10/23/2016 ANNAMARIA CARPIO APRN Ot V76.12 OTH SCREEN MAMMO-MALIGN NEOPLASM OF TASHA 10/23/2016 ANDRIY DURANT MULE RIDER Ot 727.61 ROTATOR CUFF RUPTURE 10/23/2016 REVEAL TORRES BRUCE Ot 840.4 SPRAIN ROTATOR CUFF 10/23/2016 REVEAL TORRES BRUCE Ot E000.8 OTHER EXTERNAL CAUSE STATUS 10/23/2016 REVEAL TORRES BRUCE Ot E849.0 ACCIDENT IN HOME 10/23/2016 REVEAL TORRES BRUCE Ot E888.9 FALL NOS 10/23/2016 REVEAL TORRES BRUCE Ot V72.83 EXAM PRE-OPERATIVE NEC 10/23/2016 REVEAL TORRES BRUCE Ot V74.8 SCREEN-BACTERIAL DIS NEC 10/23/2016 ANNAMARIA CARPIO APRN Ot 610.1 DIFFUS CYSTIC MASTOPATHY 10/23/2016 ANNAMARIA CARPIO APRN Ot V76.12 OTH SCREEN MAMMO-MALIGN NEOPLASM OF TASHA Procedures Code Description Performed By Performed On Orthopedi Andriy Durant 09/01/2012 74150 XRAY SHOULDER RIGHT COMP 2 VIEWS 09/02/2012 JOINT INJECTION- INTERMEDIATE JOINT 10/07/2012 JOINT INJECTION- INTERMEDIATE JOINT 11/18/2012 06511 UA W/ CULTURE IF INDICATED 01/05/2013 86200 TRICHOMONAS (IN-HOUSE) 01/05/2013 24911 CULTURE URINE 20221 MAMMOGRAM, SCREENING 01/07/2013 47857 GC/CHLAM PROBE (STATE) 01/07/2013 25598 CULTURE UROGENITAL 01/07/2013 02931 JOINT INJECTION- INTERMEDIATE JOINT 01/13/2013 28600 MAMMOGRAM DX, RIGHT 01/19/2013 32331 ROUTINE VENIPUNCTURE 04/04/2013 80406 ESR/SED RATE 07/2013 94679 CBC 04/04/2013 12063 CMP 04/04/2013 0643605 GFR CALC (RESULT ONLY) 04/04/2013 08897 TSH 04/04/2013 28617 MRI EXTREMITY JOINT, UPPER RIGHT, W/O CONTRAST 04/14/2013 Orthopedi Reveal, Torres 05/05/2013 05140 MAMMOGRAM DX, RIGHT 07/01/2013 Results Test Result Range Complete urinalysis with reflex to culture - 10/19/16 00:46 Urine color determination ORANGE NRG Urine clarity determination SLIGHTLY CLOUDY NRG Urine pH measurement by test strip 5 5- 9 Specific gravity of urine by test strip 1.015 1.016-1.022 Urine protein assay by test strip, semi-quantitative 2+ NEGATIVE Urine glucose detection by automated test strip NEGATIVE NEGATIVE Erythrocytes detection in urine sediment by light microscopy 5+ NEGATIVE Urine ketones detection by automated test strip NEGATIVE NEGATIVE Urine nitrite detection by test strip POSITIVE NEGATIVE Urine total bilirubin detection by test strip 3+ NEGATIVE Urine urobilinogen measurement by automated test strip (mass/volume) 8 mg/dL NORMAL Urine leukocyte esterase detection by dipstick 2+ NEGATIVE Automated urine sediment erythrocyte count by microscopy (number/high power field) [HPF] NRG Automated urine sediment leukocyte count by microscopy (number/high power field ) [HPF] NRG Bacteria detection in urine sediment by light microscopy FEW NRG Squamous epithelial cells detection in urine sediment by light microscopy 5-10 NRG Crystals detection in urine sediment by light microscopy NONE NRG Casts detection in urine sediment by light microscopy NONE NRG Mucus detection in urine sediment by light microscopy NEGATIVE NRG Complete urinalysis with reflex to culture YES NRG Bacterial urine culture - 10/19/16 00:46 Bacterial urine culture [id number] NRG COLONY COUNT >100,000/ML NRG FTX;REPORTABLE SENSITIVITY REPORTED AT 0750, 2--17 NRG Bacterial susceptibility panel - 10/19/16 00:46 Gentamicin susceptibility test by minimum inhibitory concentration <= NRG Trimethoprim/sulfamethoxazole susceptibility test by minimum inhibitoryconcentration <= NRG Ampicillin susceptibility test by minimum inhibitory concentration >= NRG Tobramycin susceptibility test by minimum inhibitory concentration <= NRG Cefazolin susceptibility test by minimum inhibitory concentration <= NRG Ceftriaxone susceptibility test by minimum inhibitory concentration <= NRG Ampicillin/sulbactam susceptibility test by minimum inhibitory concentration >= NRG Piperacillin/tazobactam susceptibility test by minimum inhibitory concentration <= NRG Ciprofloxacin susceptibility test by minimum inhibitory concentration <= NRG Meropenem susceptibility test by minimum inhibitory concentration <= NRG Nitrofurantoin susceptibility test by minimum inhibitory concentration 32 NRG Aztreonam susceptibility test by minimum inhibitory concentration <= NRG Extended spectrum beta lactamase (ESBL) producing bacteria susceptibility test by minimum inhibitory concentration - NRG Encounters ACCT No. Visit Date/Time Discharge Status Pt. Type Provider Facility Loc./Unit Complaint [id number] 11/24/2013 08:47:00 11/24/2013 23: 59:59 CLS Outpatient FRANCINE ALBERTS APRN [id number] 07/01/2013 08:01:00 07/01/2013 23: 59:59 CLS Outpatient QIAN CARVER DDS [id number] 11/18/2012 15:22:00 11/18/2012 23: 59:59 CLS Outpatient GILMAR MELENDREZ DO [id number] 11/10/2012 14:04:00 11/10/2012 23: 59:59 CLS Outpatient [id number] 10/07/2012 14:19:00 10/07/2012 23: 59:59 CLS Outpatient GILMAR MELENDREZ DO [id number] 08/26/2012 12:47:00 08/26/2012 23: 59:59 CLS Outpatient [id number] 05/05/2013 10:59:00 Document Registration [id number] 04/14/2013 12:36:00 Document Registration [id number] 04/04/2013 11:23:00 Document Registration [id number] 01/13/2013 12:41:00 Document Registration [id number] 01/05/2013 14:46:00 Document Registration
== END 2017-02-15 16:12 | disposition home or self-care (01) ==
LOC: EDUNIT# 14:47 → ER 14:48
DX: N39.0 Urinary tract infection, site not specified (principal)
CPT/HCPCS: 36415; 80048; 81000; 85025; 87088; 87186; 96374

== ENCOUNTER → 2018-07-23 | Outpatient (CLI) | payer OTHER ==
[~2018-07-23] MED LIST changes: +SULF1TAB35 PO
--- NOTE | 2018-07-23 16:26 | Diagnostic Imaging Report ---
INDICATION: Routine screening. COMPARISON: 04/17/2015 and 01/14/2013. TECHNIQUE: 2D and 3D bilateral screening mammography was performed with CAD. FINDINGS: Both breasts are heterogeneously dense, limiting the sensitivity of mammography. The parenchymal pattern is stable. No dominant mass or malignant appearing microcalcifications are seen. The axillae are unremarkable. IMPRESSION: No mammographic features suspicious for malignancy are identified. ACR BI-RADS Category 1: Negative. Result letter will be mailed to the patient. Note: At least 10% of breast cancer is not imaged by mammography. Dictated by: Dictated on workstation # [id number]
== END ==
LOC: RAD 14:14
PROVIDERS: ATTEND Nurse Practitioner Community Health
DX: Z12.31 Encounter for screening mammogram for malignant neoplasm of breast (principal)
CPT/HCPCS: 77067